=== PATIENT | male | born 1945 | race Caucasian/White ===

== ENCOUNTER 2017-08-20 20:21 | Observation (INO) | payer MEDICARE ==
[~2017-08-20] VITALS: Ht 180.3 cm; Wt 98.3 kg
[~2017-08-20 20:21] MED LIST: ACYC-57 PO; AMLO10TA2 PO; ASPI-515 PO; CHOL20002 PO; LOSA100T6 PO; MULT-464 PO; NIAC500T9 PO; OMEP-110 PO; SIMV20TA3 PO; VITA1TAB19 PO
[2017-08-20] MEDS ORDERED: ASPIRIN 81 MG TABLET CHEW PO ONE (21:00)
[2017-08-20] MEDS ORDERED: ASPIRIN 81 MG TABLET CHEW ONE (21:12)
[2017-08-20] MEDS ORDERED: OMEP-110 PO (21:43)
[2017-08-20] MEDS ORDERED: LOSA1TAB25 PO (21:43)
[2017-08-20 21:48] LABS: BASOPHILS # (AUTO) 0.03 x10^3/uL (0-0.1); BASOPHILS % (AUTO) 0 % (0-1); EOSINOPHILS # (AUTO) 0.39 x10^3/uL (0-0.4); EOSINOPHILS % (AUTO) 5 % (1-7); LYMPHOCYTES # (AUTO) 1.92 x10^3/uL (1-3.4); LYMPHOCYTES % (AUTO) 23 % (22-44); MD NO; MEAN CORPUSCULAR HEMOGLOBIN 30.2 pg (27.5-34.5); MEAN CORPUSCULAR HGB CONC 34.3 g/dL (33.2-36.2); MEAN CORPUSCULAR VOLUME 88.1 fL (81-97); MEAN PLATELET VOLUME 8.5 fL (7.4-10.4); MONOCYTES % (AUTO) 7 % (2-9); NEUTROPHILS # (AUTO) 5.44 x10^3/uL (1.8-6.8); NEUTROPHILS % (AUTO) 65 % (42-75); PLATELET COUNT 215 x10^3/uL (130-400); RED BLOOD COUNT 4.85 x10^6/uL (4.38-5.82); RED CELL DISTRIBUTION WIDTH 14.3 % (9.4-14.8)
[2017-08-20 21:56] LABS: ALBUMIN 3.8 g/dL (3.4-5.0); ANION GAP 6 mmol/L (5-15); CALCIUM 9.2 mg/dL (8.5-10.1); CHLORIDE 106 mmol/L (98-107); CREATININE 0.98 mg/dL (0.7-1.3)
[2017-08-20 22:00] LABS: TROPONIN I < 0.015 ng/mL (0.000-0.045)
[2017-08-20] MEDS ORDERED: POTASSIUM CHLORIDE 20 MEQ TAB.ER.PRT ONE (22:49)
[2017-08-20] MEDS ORDERED: POTASSIUM CHLORIDE 20 MEQ TAB.ER.PRT PO ONE (23:00)
[2017-08-20] MEDS ORDERED: ONDANSETRON 2MG/ML, 2ML IVPush PRN (23:30)
[2017-08-20] MEDS ORDERED: ACETAMINOPHEN 325 MG TABLET PO PRN (23:30)
[2017-08-20] MEDS ORDERED: hydrALAzine 20 MG/ML, 1ML IVPush PRN (23:30)
[2017-08-21 00:02] LABS: TROPONIN I < 0.015 ng/mL (0.000-0.045)
[2017-08-21 00:05] VITALS: BP 159/92
[2017-08-21] MEDS: SODIUM CHLORIDE 0.9% 1,000 ML IV SCH ×2 (00:27→12:25)
[2017-08-21 00:46] VITALS: BP 159/92
[2017-08-21 05:51] LABS: CHOL/HDL RATIO 3.9; LDL/HDL RATIO 2.4 (0.5-3.0)
[2017-08-21 06:16] LABS: TROPONIN I < 0.015 ng/mL (0.000-0.045)
[2017-08-21 06:51] VITALS: BP 128/80
[2017-08-21] MEDS ORDERED: REGADENOSON 0.4 MG/5 ML SYRINGE ONE (07:16)
[2017-08-21] MEDS ORDERED: OMEPRAZOLE 20 MG CAPSULE.DR PO SCH (09:00)
[2017-08-21] MEDS ORDERED: HYDROCHLOROTHIAZIDE 12.5 MG CAPSULE PO SCH (09:00)
[2017-08-21] MEDS ORDERED: SIMVASTATIN 20 MG TABLET PO SCH (09:00)
[2017-08-21] MEDS ORDERED: AMLODIPINE 5 MG TABLET PO SCH (09:00)
[2017-08-21] MEDS ORDERED: ASPIRIN 81 MG TABLET EC PO SCH (09:00)
[2017-08-21] MEDS ORDERED: LOSARTAN 50MG TABLET PO SCH (09:00)
== END 2017-08-21 14:13 | disposition home or self-care (01) ==
LOC: SUATTDRO 22:44 → ED 23:16 → INTOOBSV 23:41 → EDIP 23:41 → 5SO 23:58 → DCLOUNGE 08-21 13:55 → UNDODISIN 08-21 14:13
PROVIDERS: ADMIT Hospitalist; ATTEND Hospitalist
DX: R07.89 Other chest pain (principal); J44.9 Chronic obstructive pulmonary disease, unspecified; I10 Essential (primary) hypertension; E78.5 Hyperlipidemia, unspecified; E87.6 Hypokalemia; Z87.891 Personal history of nicotine dependence
CPT/HCPCS: 36415; 71046; 78452; 80048; 80061; 82040; 83880; 84484; 85025; 93005; 93017; 96360; 96361; 99285; A9502; C9898; G0378; J2785; J7030

== ENCOUNTER → 2018-09-15 | Outpatient (CLI) | payer MEDICARE ==
[~2018-09-15] MED LIST changes: -AMLO10TA2 PO; +AMLO10TA8 PO; +LOSA100T14 PO; -LOSA100T6 PO; +LOSA1TAB25 PO
== END | disposition home or self-care (01) ==
LOC: CFH 10:39
PROVIDERS: ATTEND Family Medicine
DX: M47.817 Spondylosis without myelopathy or radiculopathy, lumbosacral region (principal); M25.78 Osteophyte, vertebrae; M48.00 Spinal stenosis, site unspecified
CPT/HCPCS: 72100

== ENCOUNTER 2019-11-25 14:06 | Outpatient (CLI) | payer MEDICARE ==
[~2019-11-25 14:06] MED LIST changes: +SIMV20TA19 PO; -SIMV20TA3 PO
== END 2019-11-25 23:59 | disposition home or self-care (01) ==
LOC: RAD 14:06
PROVIDERS: ATTEND Family Medicine
DX: Z02.9 Encounter for administrative examinations, unspecified (principal)

== ENCOUNTER → 2020-01-05 | Outpatient (CLI) | payer MEDICARE | END | disposition home or self-care (01) | LOC: CFH 09:30 | PROVIDERS: ATTEND Family Medicine | DX: M47.817 Spondylosis without myelopathy or radiculopathy, lumbosacral region (principal) | CPT/HCPCS: 72100 ==

== ENCOUNTER 2020-11-20 07:04 | Outpatient (CLI) | payer MEDICARE ==
[~2020-11-20 07:04] MED LIST changes: +AMLO-211 PO; -AMLO10TA8 PO; -ASPI-515 PO; +ASPI-963 PO
[2020-11-20 07:29] LABS: ALANINE AMINOTRANSFERASE 65 U/L (12-78); ALBUMIN 3.9 g/dL (3.4-5.0); ANION GAP 7 mmol/L (5-15); CALCIUM 9.2 mg/dL (8.5-10.1); CHLORIDE 106 mmol/L (98-107); CHOLESTEROL, TOTAL 125 mg/dL (140-239); CREATININE 1.03 mg/dL (0.7-1.3)
[2020-11-20 07:40] LABS: ALKALINE PHOSPHATASE 112 U/L (45-117); BILIRUBIN,TOTAL 0.9 mg/dL (0.2-1.0); CHOL/HDL RATIO 3.7; HDL CHOL % 27 % (26-37); HDL CHOLESTEROL (DIRECT) 34 mg/dL (40-60); LDL CHOLESTEROL,CALCULATED 78 mg/dL (54-169); LDL/HDL RATIO 2.3 (0.5-3.0); TOTAL PROTEIN 7.2 g/dL (6.4-8.2); TRIGLYCERIDES 66 mg/dL (50-200); VLDL CHOLESTEROL 13 mg/dL (0-25)
== END 2020-11-20 23:59 | disposition home or self-care (01) ==
LOC: LAB 07:04
PROVIDERS: ATTEND Family Medicine
DX: Z12.5 Encounter for screening for malignant neoplasm of prostate (principal); E78.00 Pure hypercholesterolemia, unspecified; I10 Essential (primary) hypertension
CPT/HCPCS: 36415; 80053; 80061; 84153; 84443; G0103